=== PATIENT | female | born 1995 | race Hispanic/Latino ===

== ENCOUNTER 2019-07-16 16:45 | Emergency (ER) | payer MEDICAID, OTHER ==
[2019-07-16 17:13] LABS: APPEARANCE,URINE Cloudy (CLEAR); BILIRUBIN,URINE Negative (NEGATIVE); COLOR,URINE Yellow (YELLOW); GLUCOSE, URINE (UA) Negative (NEGATIVE); KETONES,URINE Trace mg/dL (NEGATIVE); LEUKOCYTE ESTERASE ,URINE Trace (NEGATIVE); NITRATE,URINE Negative (NEGATIVE); OCCULT BLOOD,URINE Negative (NEGATIVE); PROTEIN,URINE Negative (NEGATIVE)
[2019-07-16 17:15] LABS: HCG,QUAL RESULT POSITIVE (NEGATIVE)
[2019-07-16 17:30] LABS: SQUAMOUS EPITHELIAL CELL,UR 30-50 /HPF (0-2)
[2019-07-16 17:31] LABS: MUCUS,URINE Moderate LPF (None Seen)
[2019-07-16 17:34] LABS: RBC,URINE 0-1 /HPF (0-1)
[2019-07-16 17:35] LABS: BACTERIA,URINE Few /HPF (None Seen)
== END 2019-07-16 20:00 | disposition home or self-care (01) ==
LOC: EDH 16:45
DX: O21.9 Vomiting of pregnancy, unspecified (principal); J45.909 Unspecified asthma, uncomplicated; Z88.0 Allergy status to penicillin; Z3A.08 8 weeks gestation of pregnancy
CPT/HCPCS: 36415; 76801; 81001; 81025; 84702

== ENCOUNTER 2019-10-03 17:39 | Emergency (ER) | payer MEDICAID ==
[2019-10-03] MEDS ORDERED: SODIUM CHLORIDE 0.9% 1000ML 1,000 ML IV ONE (17:54)
[2019-10-03 18:14] LABS: BASOPHILS % (AUTO) 0.3 % (0.0-5.0); EOSINOPHILS % (AUTO) 2.1 % (0.0-8.0); HEMATOCRIT 34.3 % (36-48); MEAN CORPUSCULAR HEMOGLOBIN 31.3 pg (27.0-33.0); MEAN CORPUSCULAR VOLUME 89.6 fL (79-99); MONOCYTES % (AUTO) 6.4 % (3.0-13.0); NEUTROPHILS % (AUTO) 73.9 % (40.0-77.0); PLATELET COUNT (AUTO) 206 K/uL (130-400); RED BLOOD CELL COUNT(AUTO) 3.83 MIL/uL (4.00-5.50); WHITE BLOOD COUNT (AUTO) 6.7 K/uL (4.8-10.8)
[2019-10-03 18:18] LABS: APPEARANCE,URINE Cloudy (CLEAR); BILIRUBIN,URINE Negative (NEGATIVE); COLOR,URINE Yellow (YELLOW); GLUCOSE, URINE (UA) Negative (NEGATIVE); KETONES,URINE Negative (NEGATIVE); LEUKOCYTE ESTERASE ,URINE Moderate (NEGATIVE); NITRATE,URINE Positive (NEGATIVE); OCCULT BLOOD,URINE Negative (NEGATIVE); PH,URINE 6.5 (5.0-8.0); PROTEIN,URINE Negative (NEGATIVE)
[2019-10-03 18:37] LABS: CREATININE 0.6 mg/dL (0.5-1.5); POTASSIUM 3.3 mmol/L (3.5-5.1)
[2019-10-03 18:42] LABS: ALBUMIN 3.3 g/dL (3.5-5.0); BILIRUBIN,TOTAL 0.3 mg/dL (0.2-1.0); TOTAL PROTEIN, SERUM 6.8 g/dL (6.0-8.3)
[2019-10-03 18:58] LABS: BACTERIA,URINE Many /HPF (None Seen); RBC,URINE None Seen /HPF (0-1); YEAST,URINE BUDDING Few /HPF (None Seen)
== END 2019-10-03 19:15 | disposition home or self-care (01) ==
LOC: EDH 17:39
DX: O23.42 Unspecified infection of urinary tract in pregnancy, second trimester (principal); O99.512 Diseases of the respiratory system complicating pregnancy, second trimester; J45.909 Unspecified asthma, uncomplicated; Z88.0 Allergy status to penicillin; Z3A.16 16 weeks gestation of pregnancy
CPT/HCPCS: 36415; 80053; 81001; 85025; 87077; 87088; 87186; 93005; 96360; 99284; J7030

== ENCOUNTER 2019-11-15 23:59 | Observation (INO) | payer MEDICAID ==
[2019-11-16 00:28] LABS: APPEARANCE,URINE Clear (CLEAR); BILIRUBIN,URINE Negative (NEGATIVE); COLOR,URINE Yellow (YELLOW); GLUCOSE, URINE (UA) Negative (NEGATIVE); KETONES,URINE Negative (NEGATIVE); LEUKOCYTE ESTERASE ,URINE Moderate (NEGATIVE); NITRATE,URINE Negative (NEGATIVE); OCCULT BLOOD,URINE Negative (NEGATIVE); PROTEIN,URINE Negative (NEGATIVE)
[2019-11-16 00:35] LABS: AMPHET/METH SCREEN,URINE NEGATIVE (NEGATIVE); BARBITURATE SCREEN, URINE NEGATIVE (NEGATIVE); BENZODIAZEPINES SCREEN,URINE NEGATIVE (NEGATIVE); CANNABINOID SCREEN,URINE NEGATIVE (NEGATIVE); COCAINE SCREEN,URINE NEGATIVE (NEGATIVE); OPIATE SCREEN,URINE NEGATIVE (NEGATIVE); PHENCYCLIDINE SCREEN,URINE NEGATIVE (NEGATIVE)
[2019-11-16 00:37] LABS: BACTERIA,URINE Rare /HPF (None Seen); RBC,URINE None Seen /HPF (0-1); SQUAMOUS EPITHELIAL CELL,UR Few /HPF (0-2); YEAST,URINE BUDDING Rare /HPF (None Seen)
== END 2019-11-16 01:30 | disposition home or self-care (01) ==
LOC: EDH 23:59 → LDH 11-16
PROVIDERS: ADMIT Internal Medicine; ATTEND Internal Medicine
DX: O26.892 Other specified pregnancy related conditions, second trimester (principal); R10.2 Pelvic and perineal pain; R10.30 Lower abdominal pain, unspecified; Z3A.22 22 weeks gestation of pregnancy
CPT/HCPCS: 80305; 81001; 87088; 99284; G0378

== ENCOUNTER 2021-08-19 22:58 | Emergency (ER) | payer MEDICAID ==
[~2021-08-19] VITALS: Ht 144.8 cm; Wt 61.2 kg
[2021-08-20 00:53] LABS: BASOPHILS % (AUTO) 0.3 % (0.0-5.0); LYMPHOCYTES % (AUTO) 11.9 % (21.0-51.0); MEAN CORPUSCULAR HEMOGLOBIN 28.8 pg (27.0-33.0); MEAN CORPUSCULAR HGB CONC 32.7 g/dL (32.0-36.0); MEAN CORPUSCULAR VOLUME 88.2 fL (79-99); MONOCYTES % (AUTO) 5.9 % (3.0-13.0); NEUTROPHILS % (AUTO) 80.6 % (40.0-77.0); PLATELET COUNT (AUTO) 245 K/uL (130-400); RED BLOOD CELL COUNT(AUTO) 4.65 MIL/uL (4.00-5.50); RED CELL DISTRIBUTION WIDTH 12.2 % (11.0-15.5); WHITE BLOOD COUNT (AUTO) 10.4 K/uL (4.8-10.8)
[2021-08-20 01:04] LABS: CREATININE 0.8 mg/dL (0.5-1.5); POTASSIUM 4.3 mmol/L (3.5-5.1)
[2021-08-20 01:09] LABS: ALBUMIN 4.1 g/dL (3.5-5.0); BILIRUBIN,TOTAL 0.5 mg/dL (0.2-1.0); TOTAL PROTEIN, SERUM 7.8 g/dL (6.0-8.3)
[2021-08-20 01:24] LABS: APPEARANCE,URINE CLEAR (CLEAR); BILIRUBIN,URINE NEGATIVE (NEGATIVE); COLOR,URINE YELLOW (YELLOW); GLUCOSE, URINE (UA) NEGATIVE (NEGATIVE); KETONES,URINE NEGATIVE (NEGATIVE); LEUKOCYTE ESTERASE ,URINE NEGATIVE (NEGATIVE); NITRATE,URINE POSITIVE (NEGATIVE); OCCULT BLOOD,URINE NEGATIVE (NEGATIVE); PROTEIN,URINE NEGATIVE (NEGATIVE); UROBILINOGEN,URINE 0.2 mg/dL (0.2-1.0)
[2021-08-20 01:30] LABS: HCG,QUAL RESULT NEGATIVE (NEGATIVE)
[2021-08-20 01:33] LABS: AMPHET/METH SCREEN,URINE NEGATIVE (NEGATIVE); BACTERIA,URINE Many /HPF (None Seen); BARBITURATE SCREEN, URINE NEGATIVE (NEGATIVE); BENZODIAZEPINES SCREEN,URINE NEGATIVE (NEGATIVE); CANNABINOID SCREEN,URINE NEGATIVE (NEGATIVE); COCAINE SCREEN,URINE NEGATIVE (NEGATIVE); OPIATE SCREEN,URINE NEGATIVE (NEGATIVE); PHENCYCLIDINE SCREEN,URINE NEGATIVE (NEGATIVE); RBC,URINE None Seen /HPF (0-1)
[2021-08-20] MEDS ORDERED: ONDA4TAB10 PO (01:46)
[2021-08-20] MEDS ORDERED: MACR100 PO (01:46)
[2021-08-20] MEDS ORDERED: NITROFURANTOIN MONOHYD/M-CRYST 100 MG CAPSULE PO ONE (02:00)
[2021-08-20 02:15] VITALS: BP 125/75
== END 2021-08-20 02:18 | disposition home or self-care (01) ==
LOC: EDH 22:58
DX: N39.0 Urinary tract infection, site not specified (principal); E86.0 Dehydration; K52.9 Noninfective gastroenteritis and colitis, unspecified; Z20.822 Contact with and (suspected) exposure to COVID-19; Z88.0 Allergy status to penicillin
CPT/HCPCS: 36415; 80053; 80305; 81001; 81025; 85025; 87077; 87186; 87088; 87635; 87804 ×2; 99283; C9803

== ENCOUNTER 2024-03-09 16:51 | Emergency (ER) | payer BC, MEDICAID ==
[~2024-03-09] VITALS: Ht 144.8 cm; Wt 67.1 kg
[~2024-03-09 16:51] MED LIST: MACR100 PO; ONDA-243 PO
--- NOTE | 2024-03-09 17:08 | ERN ---
ED Note History of Present Illness Stated Complaint: VOMITTING,SOB,COUGHING,CHEST PAINS Chief Complaint: Cough Time Seen by MD: 16:53 Dictation: PATIENT IS A 28-YEAR-OLD FEMALE WITH FLU-LIKE SYMPTOMS TO INCLUDE CLEAR RUNNY NOSE, SORE THROAT WITH BODY ACHES, COUGH WITH CLEAR PHLEGM FOR THE LAST 1-2 DAYS. TURNED TEMPERATURE IS 100.7. SHE HAS TAKEN A COMPOUND OF SOMETHING FROM [id number] HOWEVER HAS NOT BEEN TO SEE HER PRIMARY CARE DOCTOR AT THE [facility]. SHE DENIES HISTORY OF ASTHMA CAD. STATES SHE HAS HAD NO NAUSEA NO VOMITING NO DIARRHEA NO LOSS OF TASTE OR SMELL. Allergies: Coded Allergies: Penicillins (Unverified Allergy, Unknown, 07/16/19) Home Meds Active Scripts Ondansetron (Ondansetron Odt) 4 Mg Tab.rapdis, 4 MG PO TID PRN for NAUSEA, #15 TAB 0 Refills Prov:RAMON DIAS MD 08/20/21 Nitrofurantoin/Nitrofuran Mac (Macrobid) 100 Mg Cap, 1 CAP PO BID for 7 Days, #14 CAP 0 Refills Prov:RAMON DIAS MD 08/20/21 Past Medical History Past Medical History: No Pertinent History Surgical History: None PSYCH History: no pertinent psych hx History: Not Applicable RN Note Reviewed/Agreed w/PFSH: Yes Review of System Dictation CONSTITUTIONAL: NEGATIVE EXCEPT FOR HPI FEVER CHILLS HEAD/FACE: NEGATIVE EXCEPT FOR HPI EENT: NEGATIVE EXCEPT FOR HPI CLEAR RUNNY NOSE WITH SORE THROAT RESPIRATORY: NEGATIVE EXCEPT FOR HPI PRODUCTIVE COUGH WITH CLEAR PHLEGM GASTROINTESTINAL/ABDOMINAL: NEGATIVE EXCEPT FOR HPI GENITOURINARY: NEGATIVE EXCEPT FOR HPI MUSCULOSKELETAL: NEGATIVE EXCEPT FOR HPI INTEGUMENTARY: NEGATIVE EXCEPT FOR HPI NEUROLOGICAL/PSYCH: NEGATIVE EXCEPT FOR HPI HEMATOLOGIC/LYMPHATIC: NEGATIVE EXCEPT FOR HPI ALL SYSTEMS NEGATIVE, EXCEPT NOTED ABOVE. 13 POINT REVIEW OF SYSTEMS ASSESSED AND ALL NEGATIVE EXCEPT FOR ABOVE. Initial Vital Sign VS Vital Signs Date Time Temp Pulse Resp B/P (MAP) Pulse Ox O2 Delivery O2 Flow Rate FiO2 03/09/24 16:53 100.8 131 18 157/75 98 Physical Exam Dictation VITAL SIGNS REVIEWED GENERAL APPEARANCE: ALERT, ORIENTED X 3, MILD ACUTE DISTRESS, WELL DEVELOPED, NOURISHED. HEAD AND FACE: NON-TRAUMATIC. EYES: PERRL, PINK CONJUNCTIVAS, EYELID NO TRAUMA, ANTERIOR CHAMBER WITH ARCUS SENILIS. EARS: PINNAS INTACT AND NO SIGNS OF TRAUMA OR ERYTHEMA EAR CANALS CLEAR AND NO DISCHARGE TM NO ERYTHEMA NOSE: CLEAR DISCHARGE, NO BLEEDING. OROPHARYNX: MOUTH NORMAL, TONGUE PINK, PHARYNX CLEAR, MODERATE PHARYNGEAL ERYTHEMA, TONSILS NO EXUDATES, NO ABSCESSES NOTED, MUCOUS MEMBRANE MOIST UVULA MIDLINE, VOICE IS CLEAR NECK: SUPPLE, NON-TENDER, NO THYROMEGALY, NO MASSES, NO JVD, NO BRUITS BREAST:DEFERRED CHEST:NO TENDERNESS, NO CREPITUS, NO PARADOXICAL MOVEMENT, NO RETRACTIONS LUNGS:CLEAR, WELL-VENTILATED, SYMMETRIC, NO RALES, NO WHEEZING, NO RHONCHI, NO STRIDOR, GOOD BREATH SOUNDS BILATERALLY HEART: REGULAR RATE, REGULAR RHYTHM, NO MURMUR, NO GALLOPS VASCULAR: NO PERIPHERAL EDEMA, ABDOMEN: SOFT, POSITIVE BOWEL SOUNDS, NONDISTENDED, NO GUARDING, NONTENDER, NO REBOUND, NO MASSES NO HEPATOMEGALY, NO SPLENOMEGALY, NO MARIEE'S SIGN, NO HERNIAS. RECTAL: DEFERRED GENITAL: DEFERRED NEUROLOGICAL: NORMAL SPEECH, MOTOR FUNCTION INTACT, SENSORY FUNCTION INTACT MUSCULOSKELETAL: NECK NONTENDER, FULL RANGE OF MOTION, BACK NONTENDER, FULL RANGE OF MOTION, EXTREMITIES: NONTENDER, FULL RANGE OF MOTION SKIN: COLOR PINK, DRY, NO TURGOR, NO RASH, NO LACERATIONS, NO ABRASIONS, NO CONTUSIONS. LYMPHATIC: DEFERRED Results (Laboratory/Radiology) Laboratory/Radiology Laboratory Tests Test 03/09/24 17:00 Influenza Type A Antigen Positive For Type A Influenza Type B Antigen Negative For Type B SARS-CoV-2 Antigen (Rapid) PRESUMPTIVE NEGATIVE Group A Streptococcus Rapid negative (NEGATIVE) Labs Reviewed?: Yes ED Course ED Course Orders Procedure Category Date Status Time Acetaminophen 500mg PHA 03/09/24 Complete Tab (Tylenol 500mg T 17:00 Rapid (Group A Strep) LAB 03/09/24 Complete 16:59 Covid19 (Sars Antigen LAB 03/09/24 Complete Rapid) 16:59 Influenza Type A & B, LAB 03/09/24 Complete Rapid 16:59 Current Medications Medications (Trade) Dose Ordered Sig/Nanette Route PRN Reason Start Time Stop Time Status Last Admin Dose Admin Acetaminophen (TYLenol 500MG TAB) 1,000 mg ONCE ONCE PO 03/09/24 17:00 03/09/24 17:01 DC 03/09/24 17:16 Vital Signs Date Time Temp Pulse Resp B/P (MAP) Pulse Ox O2 Delivery O2 Flow Rate FiO2 03/09/24 16:53 100.8 131 18 157/75 98 18:00 HOURS PATIENT WILL BE DISCHARGED HOME WITH DIAGNOSIS OF INFLUENZA A. ALSO ACUTE PHARYNGITIS UNSPECIFIED AND FEET Medical Decision Making MDM MEDICAL DECISION-MAKING BASED ON SWABS FOR FLU COVID AND STREP. PATIENT WILL BE TREATED EMPIRICALLY FOR ACUTE PHARYNGITIS UNSPECIFIED SWABS POSITIVE FOR INFLUENZA A PATIENT DISCHARGED HOME WITH ALBUTEROL, TAMIFLU, ZITHROMAX 500 DAILY FOR SEVEN DAYS DX & DISP Disposition: Discharge Departure Impression: Primary Impression: Influenza A Additional Impressions: Acute pharyngitis, unspecified, Fever, Cough Condition: Stable Scripts Albuterol Sulfate (Ventolin Hfa/Proventil Hfa/Proair Hfa) 90 Mcg Puff 2 PUFF IH Q4H for WHEEZING, #1 INHALER 0 Refills Prov: CHUY HILL MULTI TOWNSHIP ASSESSOR 03/09/24 Azithromycin (Zithromax Tri-Stanley) 500 Mg Tablet 500 MG PO DAILY for 7 Days, #7 TAB Prov: CHUY HILL M[employer]OWNSH[employer] ASSESSOR 03/09/24 Oseltamivir Phosphate (Tamiflu) 75 Mg Cap 75 MG PO BID for 5 Days, #10 CAP Prov: CHUY HILL M[employer] TOWNSHIP ASSESSOR 03/09/24 Additional Instructions: FOLLOW-UP WITH PRIMARY CARE PROVIDER IN 1 TO 2 DAYS. TAKE MEDICATIONS DIRECTED HERE IN THE EMERGENCY ROOM. OKAY TO CONTINUE HOME MEDICATIONS UNLESS OTHERWISE DISCUSSED DURING YOUR VISIT IN THE EMERGENCY ROOM TODAY. RETURN TO YOUR NEAREST EMERGENCY ROOM IF SYMPTOMS WORSEN OR IF THERE IS NO IMPROVEMENT. CALL 911 IF YOU NEED IMMEDIATE ASSISTANCE. TAKE TYLENOL OR MOTRIN O [id number] NEEDED AND IF NO CONTRAINDICATIONS ARE PRESENT. INCREASE ORAL HYDRATION. A WOUND CULTURE OR URINE CULTURE WAS ORDERED HERE IN THE EMERGENCY ROOM DEPARTMENT PLEASE FOLLOW-UP WITH PRIMARY CARE PROVIDER AND ADVISE THEM TO GET REPEAT PORTS FROM OUR FACILITY. IF YOU HAD ANY ROSA WRAP/SPLINTS THAT WERE APPLIED HERE, PLEASE DO NOT REMOVE THEM UNTIL YOU SEE YOUR PRIMARY CARE OR SPECIALTY. TAKE ANTIBIOTICS AND TAMIFLU DIRECTED UNTIL GONE. INCREASE YOUR WATER INTAKE. USE ALBUTEROL INHALER EVERY4 HOURS WHILE AWAKE FOR THE NEXT THREE DAYS. FOLLOW UP WITH YOUR DOCTOR AT THE [facility] FOR MANAGEMENT. NO WORK UNTIL CLEARED BY YOUR DOCTOR AT [facility] Referrals: LUIS BRANDT MD (PCP) Time of Disposition: 18:00 I have reviewed the case, and I agree with, Diagnosis and Plan CHUY HILL NP Mar 09, 2024 17:08
[2024-03-09] MEDS: acetaMINOPHEN 500 MG TABLET PO ONE (17:16)
[2024-03-09 17:20] LABS: RAPID GROUP A STREP negative (NEGATIVE)
[2024-03-09 17:30] LABS: COVID19 (SARS ANTIGEN RAPID) PRESUMPTIVE NEGATIVE (NEGATIVE)
[2024-03-09 17:31] LABS: INFLUENZA TYPE B Negative For Type B (NEGATIVE)
[2024-03-09 17:37] LABS: INFLUENZA TYPE A Positive For Type A (NEGATIVE)
[2024-03-09] MEDS ORDERED: AZIT500T2 PO (18:01)
[2024-03-09] MEDS ORDERED: ALBUHFA IH (18:01)
[2024-03-09] MEDS ORDERED: OSEL75 PO (18:01)
[2024-03-09 18:11] VITALS: BP 118/78; PULSE 81; RESP 18; TEMP 99; O2SAT 98
== END 2024-03-09 18:12 | disposition home or self-care (01) ==
LOC: EDH 16:51
DX: J10.1 Influenza due to other identified influenza virus with other respiratory manifestations (principal); R50.9 Fever, unspecified; R05.9 Cough, unspecified; Z88.0 Allergy status to penicillin; Z20.822 Contact with and (suspected) exposure to COVID-19
CPT/HCPCS: 87426; 87804; 87880; 99283

== ENCOUNTER 2024-07-25 18:31 | Emergency (ER) | payer BC ==
[~2024-07-25] VITALS: Ht 144.8 cm; Wt 67.1 kg
[~2024-07-25 18:31] MED LIST changes: +ALBUHFA IH; +AZIT500T2 PO; +OSEL75 PO
[2024-07-25 18:55] LABS: APPEARANCE,URINE CLOUDY (CLEAR); BILIRUBIN,URINE NEGATIVE (NEGATIVE); COLOR,URINE LIGHT-YELLOW (YELLOW); GLUCOSE, URINE (UA) NEGATIVE (NEGATIVE); KETONES,URINE NEGATIVE (NEGATIVE); LEUKOCYTE ESTERASE ,URINE 75 Leu/uL (NEGATIVE); NITRATE,URINE 1+ (NEGATIVE); OCCULT BLOOD,URINE SMALL (NEGATIVE); PROTEIN,URINE NEGATIVE (NEGATIVE); UROBILINOGEN,URINE 0.2 mg/dL (0.2-1.0)
[2024-07-25 18:56] LABS: ADD UA MICROSCOPIC YES
[2024-07-25 18:57] LABS: BACTERIA,URINE FEW /HPF (None Seen); MUCUS,URINE RARE LPF (None Seen); SQUAMOUS EPITHELIAL CELL,UR FEW /HPF (0-2)
[2024-07-25 19:01] LABS: HCG,QUALITATIVE URINE NEGATIVE (NEGATIVE)
[2024-07-25 19:15] LABS: BASOPHILS # (AUTO) 0.04 K/uL (0.00-0.20); BASOPHILS % (AUTO) 0.4 % (0.0-5.0); EOSINOPHILS # (AUTO) 0.07 K/uL (0.00-0.70); EOSINOPHILS % (AUTO) 0.7 % (0.0-8.0); HEMATOCRIT 39.5 % (36-48); IMMATURE GRANULOCYTE ABSOLUTE 0.04 K/uL (0-1); LYMPHOCYTES # (AUTO) 1.4 K/uL (1.0-4.8); LYMPHOCYTES % (AUTO) 13.9 % (21.0-51.0); MEAN CORPUSCULAR HEMOGLOBIN 30.4 pg (27.0-33.0); MEAN CORPUSCULAR HGB CONC 33.4 g/dL (32.0-36.0); MONOCYTES # (AUTO) 0.6 K/uL (0.1-1.0); MONOCYTES % (AUTO) 5.9 % (3.0-13.0); NEUTROPHILS # (AUTO) 7.8 K/uL (1.8-7.7); NEUTROPHILS % (AUTO) 78.7 % (40.0-77.0); PLATELET COUNT (AUTO) 245 K/uL (130-400); RED BLOOD CELL COUNT(AUTO) 4.34 MIL/uL (4.00-5.50)
[2024-07-25 19:24] LABS: CREATININE 0.7 mg/dL (0.5-1.0); POTASSIUM 3.9 mmol/L (3.5-5.1)
[2024-07-25] MEDS: acetaMINOPHEN 500 MG TABLET PO STA (19:33)
[2024-07-25 19:40] VITALS: BP 115/51; PULSE 95; RESP 18; TEMP 99.1; O2SAT 99
[2024-07-25] MEDS ORDERED: NITR100C PO (19:49)
--- NOTE | 2024-07-25 19:50 | ERN ---
ED Note History of Present Illness Stated Complaint: LOWER BACK AND PELVIC PAIN Chief Complaint: Pelvic Pain Time Seen by MD: 18:32 Time Seen by Midlevel: 18:36 Dictation: 28Year old female coming in with complaints of lower back pain and pain to her uterus started a couple of days ago. Patient states she does not know when her last menstruation was a she is irregular and takes control pills. Denies any vaginal bleeding vaginal discharge. Denies any fever, nausea vomiting or diarrhea. Patient mentioned in her last her urine hCG was negative. Allergies: Coded Allergies: Penicillins (Unverified Allergy, Unknown, 07/16/19) Home Meds Active Scripts Albuterol Sulfate (Ventolin Hfa/Proventil Hfa/Proair Hfa) 90 Mcg Puff, 2 PUFF IH Q4H for WHEEZING, #1 INHALER 0 Refills Prov:CHUY HILL NP 03/09/24 Azithromycin (Zithromax Tri-Stanley) 500 Mg Tablet, 500 MG PO DAILY for 7 Days, #7 TAB Prov:CHUY HILL NP 03/09/24 Oseltamivir Phosphate (Tamiflu) 75 Mg Cap, 75 MG PO BID for 5 Days, #10 CAP Prov:CHUY HILL NP 03/09/24 Ondansetron (Ondansetron Odt) 4 Mg Tab.rapdis, 4 MG PO TID PRN for NAUSEA, #15 TAB 0 Refills Prov:RAMON DIAS MD 08/20/21 Nitrofurantoin/Nitrofuran Mac (Macrobid) 100 Mg Cap, 1 CAP PO BID for 7 Days, #14 CAP 0 Refills Prov:RAMON DIAS MD 08/20/21 Past Medical History Past Medical History: No Pertinent History Surgical History: Other History: Not Applicable : 1 Para: 2 Aborts: 0 Review of System Dictation Constitutional: Negative for fever,chills, and weight loss Eyes: Negative for injury, pain,redness, and discharge ENT: Negative for injury,pain or swelling Cardiovascular: Negative for chest pain, palpitations, and edema Respiratory: Negative for shortness of breath, cough, and wheezing, Abdomen/GI: Negative for abdominal pain, nausea, vomiting, diarrhea, and constipation Back: Complaining of lower back pain : Negative for injury, bleeding and discharge, complaining of uterus" pain MS/Extremity: Negative for injury and deformity Skin: Negative for rash, and discoloration Neuro: Negative for headache, weakness, numbness, tingling, and seizure Psych: Negative for suicide ideation, homicidal ideation, and hallucinations Review of Systems: was completed Initial Vital Sign VS Vital Signs Date Time Temp Pulse Resp B/P (MAP) Pulse Ox O2 Delivery O2 Flow Rate FiO2 07/25/24 18:32 99.1 100 18 150/64 100 Room Air 0 07/25/24 19:40 21 Physical Exam Dictation General: awake, alert, NAD Head/Face: Normocephalic, atraumatic Eyes: PERRL, EOMI, vision at baseline ENT: oral cavity clear, TMs clear, no signs of infection Neck: Trachea midline, supple, no nuchal rigidity Cardiovascular: RRR, normal S1/S2, No MRGs, no JVD Respiratory: CTAB, no respiratory distress, No rales or wheezes Abdomen: Soft, non-tender, non-distended, normal bowel sounds, no guarding or rebound. Skin: Warm, dry, normal turgor, no rash MS/Extremity: Pulses equal, no cyanosis, neurovascular intact, FROM Neuro: COAx4, GCS 15, strength 5/5, CN 2-12 intact, normal cerebellar exam, normal gait, Psych: Normal behavior, mood, and affect normal Results (Laboratory/Radiology) Laboratory/Radiology Laboratory Tests Test 07/25/24 18:41 07/25/24 19:08 Urine Color LIGHT-YELLOW (YELLOW) Urine Appearance CLOUDY (CLEAR) H Urine pH 6.0 (5.0-8.0) Urine Specific [place] 1.027 (1.001-1.031) Urine Protein NEGATIVE mg/dL (NEGATIVE) Urine Glucose (UA) NEGATIVE mg/dL (NEGATIVE) Urine Ketones NEGATIVE mg/dL (NEGATIVE) Urine Occult Blood SMALL (NEGATIVE) H Urine Nitrate 1+ (NEGATIVE) H Urine Bilirubin NEGATIVE mg/dL (NEGATIVE) Urine Urobilinogen 0.2 mg/dL (0.2-1.0) Urine Leukocyte Esterase 75 Merry/uL (NEGATIVE) H Urine RBC 6-10 /HPF (0-1) H Urine WBC 11-25 /HPF (0-1) H Urine Squamous Epithelial Cells FEW /HPF (0-2) Urine Bacteria FEW /HPF (None Seen) Urine HCG, Qualitative NEGATIVE (NEGATIVE) White Blood Count 10.0 K/uL (4.8-10.8) Red Blood Count 4.34 MIL/uL (4.00-5.50) Hemoglobin 13.2 g/dL (12.0-16.0) Hematocrit 39.5 % (36-48) Mean Corpuscular Volume 91.0 fL (79-99) Mean Corpuscular Hemoglobin 30.4 pg (27.0-33.0) Mean Corpuscular Hemoglobin Concent 33.4 g/dL (32.0-36.0) Red Cell Distribution Width 12.0 % (11.0-15.5) Platelet Count 245 K/uL (130-400) Mean Platelet Volume 9.9 fL (7.5-10.5) Immature Granulocyte % (Auto) 0.4 % (0-1) Neutrophils (%) (Auto) 78.7 % (40.0-77.0) H Lymphocytes (%) (Auto) 13.9 % (21.0-51.0) L Monocytes (%) (Auto) 5.9 % (3.0-13.0) Eosinophils (%) (Auto) 0.7 % (0.0-8.0) Basophils (%) (Auto) 0.4 % (0.0-5.0) Neutrophils # (Auto) 7.8 K/uL (1.8-7.7) H Lymphocytes # (Auto) 1.4 K/uL (1.0-4.8) Monocytes # (Auto) 0.6 K/uL (0.1-1.0) Eosinophils # (Auto) 0.07 K/uL (0.00-0.70) Basophils # (Auto) 0.04 K/uL (0.00-0.20) Absolute Immature Granulocyte (auto 0.04 K/uL (0-1) Nucleated Red Blood Cells 0.0 % (0.0-0.19) Sodium Level 140 mmol/L (136-145) Potassium Level 3.9 mmol/L (3.5-5.1) Chloride Level 103 mmol/L (101-111) Carbon Dioxide Level 31 mmol/L (21-32) Blood Urea Nitrogen 17 mg/dL (7-18) Creatinine 0.7 mg/dL (0.5-1.0) Glomerular Filtration Rate Calc 121 mL/min (>90) Random Glucose 106 mg/dL (70-105) H Total Calcium 8.9 mg/dL (8.5-10.1) Human Chorionic Gonadotropin, Quant 1 mIU/mL (0-5) Labs Reviewed?: Yes ED Course ED Course Orders Procedure Category Date Status Time Cbc With Differential LAB 07/25/24 Complete 18:36 Basic Metabolic Panel LAB 07/25/24 Complete 18:36 Hcg,Quantitative LAB 07/25/24 Complete 18:36 Urinalysis Profile LAB 07/25/24 Complete 18:36 ,Urine Test LAB 07/25/24 Complete 18:36 Acetaminophen 500mg PHA 07/25/24 Complete Tab (Tylenol 500mg T 18:36 Culture Urine EVELYN 07/25/24 Logged 18:56 Current Medications Medications (Trade) Dose Ordered Sig/Nanette Route PRN Reason Start Time Stop Time Status Last Admin Dose Admin Acetaminophen (TYLenol 500MG TAB) 1,000 mg ONCE STAT PO 07/25/24 18:36 07/25/24 18:37 DC 07/25/24 19:33 Vital Signs Date Time Temp Pulse Resp B/P (MAP) Pulse Ox O2 Delivery O2 Flow Rate FiO2 07/25/24 19:40 99.1 95 18 115/51 99 Room Air* 0 21 07/25/24 18:32 99.1 100 18 150/64 100 Room Air 0 Medical Decision Making MDM MDM: 28Year old female coming in with complaints of lower back pain and pain to her uterus started a couple of days ago. Patient states she does not know when her last menstruation was a she is irregular and takes control pills. Denies any vaginal bleeding vaginal discharge. Denies any fever, nausea vomiting or diarrhea. Patient mentioned in her last her urine hCG was negative. Blood work unremarkable. Serum HCG is negative and urinary test is negative as well. UA shows evidence of urinary tract infection. We will prescribe patient antibiotics to take home. Discussed with the patient red flag symptoms to return to the hospital, also educated patient she needs to follow up with the OBGYN. Patient verbalized understanding, answered all questions. Differential diagnosis: Early , UTI, muscle spasm Rationale: Tests considered and ordered secondary to shared decision making include: Previous outside records reviewed: Old ER visits. Risk of complication and/or morbidity or mortality of patient management: None Medications-Per medication reconciliation Need for hospitalization: Patient does not meet criteria for hospitalization. Need for emergency major/minor surgery: No There are no social concerns with this patient. Prescription drug management Prescriptions will include symptomatic care Patient's prior external medical records from other ER visits were reviewed by me as indicated. Prior testing and results from previous visits were reviewed. Prior tests were taken into account with medical decision making and resource utilization, independent historian/historians were used to obtain complete medical history. I independently interpreted the test that were performed, results were reviewed by me and considered findings on radiology if ordered. Medical management and examination interpretation discussions were had by me with other qualified healthcare professionals as indicated for the patient's care. DX & DISP Disposition: Discharge Departure Impression: Primary Impression: UTI (urinary tract infection) Condition: Stable Scripts Nitrofurantoin Macrocrystal (Nitrofurantoin) 100 Mg Capsule 1 CAP PO BID for 5 Days, #14 CAP 0 Refills Prov: COBY NEGRETE NP 07/25/24 Additional Instructions: Complete the course of antibiotics. Take Tylenol or Motrin [id number] for pain control. Follow up with the OBGYN. Referrals: CHUY MARIA MD (PCP) Time of Disposition: 19:47 I have reviewed the case, and I agree with, Diagnosis and Plan COBY NEGRETE NP Jul 25, 2024 19:50
== END 2024-07-25 19:57 | disposition home or self-care (01) ==
LOC: EDH 18:31
DX: N39.0 Urinary tract infection, site not specified (principal); Z88.0 Allergy status to penicillin; R10.2 Pelvic and perineal pain; Z79.899 Other long term (current) drug therapy
CPT/HCPCS: 36415; 80048; 81001; 81025; 84702; 85025; 87086; 87186; 99283

== ENCOUNTER 2025-02-09 03:12 | Emergency (ER) | payer BC ==
[~2025-02-09] VITALS: Ht 144.8 cm; Wt 68.0 kg
[~2025-02-09 03:12] MED LIST changes: +NITR100C PO
--- NOTE | 2025-02-09 03:20 | ERN ---
General Chief Complaint: Finger Injury Stated Complaint: SWOLLEN R MIDDLE FINGER Time Seen by MD: 03:15 Source: patient History of Present Illness Initial Comments PATIENT IS A 29-YEAR-OLD FEMALE COMING IN COMPLAINING OF RIGHT HAND MIDDLE FINGER DISTAL SWELLING. PER PATIENT SHE SMASHED HER FINGER COUPLE OF DAYS AGO YESTERDAY SHE NOTICED A DISTAL PORTION OF HER MIDDLE FINGER RED WITH THE CUTICLE CHANGE IN COLOR TO WHITE. Allergies: Coded Allergies: Penicillins (Unverified Allergy, Unknown, 07/16/19) Home Meds Active Scripts Nitrofurantoin Macrocrystal (Nitrofurantoin) 100 Mg Capsule, 1 CAP PO BID for 5 Days, #14 CAP 0 Refills Prov:COBY NEGRETE GENERAL INTERNIST 07/25/24 Albuterol Sulfate (Ventolin Hfa/Proventil Hfa/Proair Hfa) 90 Mcg Puff, 2 PUFF IH Q4H for WHEEZING, #1 INHALER 0 Refills Prov:CHUY HILL AIRPLANE CAPTAIN 03/09/24 Azithromycin (Zithromax Tri-Stanley) 500 Mg Tablet, 500 MG PO DAILY for 7 Days, #7 TAB Prov:CHUY HILL AIRPLANE CAPTAIN 03/09/24 Oseltamivir Phosphate (Tamiflu) 75 Mg Cap, 75 MG PO BID for 5 Days, #10 CAP Prov:CHUY HILLP 03/09/24 Ondansetron (Ondansetron Odt) 4 Mg Tab.rapdis, 4 MG PO TID PRN for NAUSEA, #15 TAB 0 Refills Prov:RAMON DIAS MD 08/20/21 Nitrofurantoin/Nitrofuran Mac (Macrobid) 100 Mg Cap, 1 CAP PO BID for 7 Days, #14 CAP 0 Refills Prov:RAMON DIAS MD 08/20/21 Past Medical History Past Medical History: No Pertinent History Past Surgical History: Other Female( History) History: Not Applicable : 1 Para: 2 Aborts: 0 ROS Dictation CONSTITUTIONAL: NO CHILLS, NO FEVER, NO WEAKNESS, NO DIAPHORESIS, NO MALAISE. HEAD/FACE: NO SIGNS OF TRAUMA. EENT: NO EYE PAIN, NO BLURRED VISION, NO TEARING, NO DOUBLE VISION, NO EAR PAIN, NO EAR DISCHARGE, NO NOSE PAIN, NO NASAL CONGESTION, NO THROAT PAIN, NO THROAT SWELLING, NO MOUTH PAIN. RESPIRATORY: NO COUGH, NO ORTHOPNEA, NO SOB, NO STRIDOR, NO WHEEZING. CARDIOVASCULAR: NO CHEST PAIN, NO EDEMA, NO PALPITATIONS, NO SYNCOPE. GASTROINTESTINAL/ABDOMINAL: NO ABDOMINAL PAIN, NO CONSTIPATION, NO DIARRHEA, NO NAUSEA, NO VOMITING. GENITOURINARY: NO ABNORMAL DISCHARGE, NO DYSURIA, NO FREQUENT URINATION, NO HEMATURIA. NO COMPLAINTS OF PAIN IN THE GENITALS. MUSCULOSKELETAL: NO BACK PAIN, NO GOUT, NO JOINT PAIN, NO JOINT SWELLING, NO MUSCLE PAIN, NO MUSCLE STIFFNESS, NO NECK PAIN. INTEGUMENTARY: NO CHANGE IN COLOR, NO CHANGE IN HAIR/NAILS, NO DRYNESS, LESION, NO LUMPS, NO RASH. NEUROLOGICAL/PSYCH: NO ANXIETY, NOT DEPRESSED, NO EMOTIONAL PROBLEM, NO HEADACHE, NO NUMBNESS, NO PRE-EXISTING DEFICIT, NO HISTORY OF SEIZURES, NO TREMORS, NO WEAKNESS. HEMATOLOGIC/LYMPHATIC: NOT ANEMIC, NO HISTORY OF BLOOD CLOTS, NO APPARENT BLEEDING, NO BRUISING, GLANDS NOT SWOLLEN. ALL SYSTEMS NEGATIVE, EXCEPT NOTED. Physical Exam Physical Exam Dictation VITAL SIGNS: REVIEWED. GENERAL APPEARANCE: ALERT, ORIENTED X3, NO ACUTE DISTRESS, OBESE. HEAD AND FACE: NON-TRAUMATIC. EYES: PERRL, PINK CONJUNCTIVAS, EYELID NO TRAUMA, ANTERIOR CHAMBER CLEAR. EARS: PINNAS INTACT AND NO SIGNS OF TRAUMA OR ERYTHEMA. EAR CANALS CLEAR AND NO DISCHARGE. TMS NO ERYTHEMA. NOSE: NO DISCHARGE, NO BLEEDING. OROPHARYNX: MOUTH NORMAL, TEETH NO CARIES, TONGUE PINK. PHARYNX CLEAR, NO ERYTHEMA. TONSILS NO EXUDATES, NO ABSCESSES NOTED. MUCOUS MEMBRANE MOIST. NECK: SUPPLE, NON-TENDER, NO THYROMEGALY, NO MASSES, NO JVD, NO BRUITS. BREAST: DEFERRED. CHEST: NO TENDERNESS, NO CREPITUS, NO PARADOXICAL MOVEMENT, NO RETRACTIONS. LUNGS: CLEAR, WELL-VENTILATED, SYMMETRIC, NO RALES, NO WHEEZING, NO RHONCHI, NO STRIDOR, GOOD BREATH SOUNDS BILATERALLY. HEART: REGULAR RATE, REGULAR RHYTHM, NO MURMUR, NO GALLOPS. VASCULAR: NO PERIPHERAL EDEMA. ABDOMEN: SOFT, POSITIVE BOWEL SOUNDS, NONDISTENDED, NO GUARDING, NONTENDER, NO REBOUND, NO MASSES NO HEPATOMEGALY, NO SPLENOMEGALY, NO MARIEE'S SIGN, NO HERNIAS. RECTAL: DEFERRED. GENITAL: DEFERRED. NEUROLOGICAL: NORMAL SPEECH, GROSS MOTOR FUNCTION INTACT, GROSS SENSORY FUNCTION INTACT. MUSCULOSKELETAL: NECK NONTENDER, FULL RANGE OF MOTION, BACK NONTENDER, FULL RANGE OF MOTION. EXTREMITIES: NONTENDER, FULL RANGE OF MOTION. SKIN: COLOR PINK, DRY, NO TURGOR, NO RASH, NO LACERATIONS, RIGHT HAND 3RD DIGIT PARONYCHIA LYMPHATICS: DEFERRED. Results Laboratory and Microbiology Labs Reviewed?: Yes MDM MDM: DIFFERENTIAL DIAGNOSIS: PARONYCHIA, RATIONALE: TESTS CONSIDERED AND ORDERED SECONDARY TO SHARED DECISION MAKING INCLUDE: PREVIOUS OUTSIDE RECORDS REVIEWED: OLD ER VISITS. RISK OF COMPLICATION AND/OR MORBIDITY OR MORTALITY OF PATIENT MANAGEMENT: NONE MEDICATIONS-PER MEDICATION RECONCILIATION NEED FOR HOSPITALIZATION: PATIENT DOES NOT MEET CRITERIA FOR HOSPITALIZATION. NEED FOR EMERGENCY MAJOR/MINOR SURGERY: NO PATIENT IS A 29-YEAR-OLD FEMALE COMING IN COMPLAINING OF RIGHT HAND MIDDLE DIGIT DISCOMFORT AND COLOR CHANGE. ON PHYSICAL EXAM THE BASE OF THE NAIL BED HAS A PARONYCHIA IN PLACE. PARONYCHIA WAS LANCED AND DRAINED PATIENT WILL BE GOING HOME WITH ORAL ANTIBIOTICS. PATIENT TOLERATED PROCEDURE WELL WE WILL BE DISCHARGED IN STABLE CONDITION. ED Course Orders Procedure Category Date Status Time Neomy PHA 02/09/25 Complete Sulf/Bacitra/Polymyxin 03:26 Current Medications Medications (Trade) Dose Ordered Sig/Nanette Route PRN Reason Start Time Stop Time Status Last Admin Dose Admin Neomycin/ Polymyxin/ Bacitracin (Triple Antibiotic Ointment) 1 appl STK-MED ONCE TP 02/09/25 03:26 02/09/25 03:26 DC Vital Signs Date Time Temp Pulse Resp B/P (MAP) Pulse Ox O2 Delivery O2 Flow Rate FiO2 02/09/25 03:14 96.8 85 18 124/76 99 Room Air 0 Incision and Drainage Incision and Drainage : Blade Size: 11 I & D Procedure: no betadine prepno sterile drapes applied Progress IN HIS HAS BEEN PARONYCHIA FOUND OUT THE BASE OF THE NAIL BED OF THE 3RD DIGIT OF THE RIGHT HAND WAS LANCED USING A SCALPEL BLADE SIZE 11, PURULENT DISCHARGE PRESSURE WAS RELIEVED. PATIENT TOLERATED PROCEDURE WELL DX & DISP Disposition: Discharge Departure Impression: Primary Impression: Paronychia Condition: Stable Scripts Bacitracin (Bacitracin) 500 Unit/Gram Oint...g. 1 APPL TP BID for 7 Days, #15 GM 0 Refills apply to affected area(s) Prov: ROBBI COLÓN MD 02/09/25 Additional Instructions: FOLLOW-UP WITH PRIMARY CARE PROVIDER IN 1 TO 2 DAYS. TAKE MEDICATIONS DIRECTED HERE IN THE EMERGENCY ROOM. OKAY TO CONTINUE HOME MEDICATIONS UNLESS OTHERWISE DISCUSSED DURING YOUR VISIT IN THE EMERGENCY ROOM TODAY. RETURN TO [facility] EM[facility]GENC[facility] IF SYMPTOMS WORSEN OR IF THERE IS NO IMPROVEMENT. CALL 911 IF YOU NEED IMMEDIATE ASSISTANCE. TAKE TYLENOL [id number] NEEDED AND IF NO CONTRAINDICATIONS ARE PRESENT. INCREASE ORAL HYDRATION. A WOUND CULTURE OR URINE CULTURE WAS ORDERED HERE IN THE EMERGENCY ROOM DEPARTMENT PLEASE FOLLOW-UP WITH PRIMARY CARE PROVIDER AND ADVISE THEM TO GET REPORTS FROM OUR FACILITY. IF YOU HAD ANY ORSA WRAP/SPLINTS THAT WERE APPLIED HERE, PLEASE DO NOT REMOVE THEM UNTIL YOU SEE YOUR PRIMARY CARE OR SPECIALTY. REFERRALS: Referrals: CHUY MARIA MD (PCP) Time of Disposition: 03:19 ROBBI COLÓN MD Feb 09, 2025 03:20
[2025-02-09] MEDS ORDERED: BACI30OI6 TP (03:28)
[2025-02-09 03:30] VITALS: BP 121/73; PULSE 85; RESP 18; TEMP 96.4; O2SAT 100
[2025-02-09] MEDS: NEOMY SULF/BACITRA/POLYMYXIN B 1 EACH PACKET TP ONE (03:37)
== END 2025-02-09 03:51 | disposition home or self-care (01) ==
LOC: EDH 03:12
DX: L03.011 Cellulitis of right finger (principal); Z88.0 Allergy status to penicillin
CPT/HCPCS: 10060; 99282

== ENCOUNTER 2025-02-13 20:22 | Emergency (ER) | payer BC ==
[~2025-02-13] VITALS: Ht 144.8 cm; Wt 66.2 kg
[~2025-02-13 20:22] MED LIST changes: +BACI30OI6 TP
[2025-02-13 20:36] LABS: APPEARANCE,URINE CLEAR (CLEAR); GLUCOSE, URINE (UA) NEGATIVE (NEGATIVE); LEUKOCYTE ESTERASE ,URINE 500 Leu/uL (NEGATIVE); NITRATE,URINE NEGATIVE (NEGATIVE); OCCULT BLOOD,URINE +- (TRACE) (NEGATIVE)
[2025-02-13 20:45] LABS: ADD UA MICROSCOPIC YES
[2025-02-13 20:47] LABS: SQUAMOUS EPITHELIAL CELL,UR MOD /HPF (0-2)
--- NOTE | 2025-02-13 20:53 | ERN ---
ED Note History of Present Illness Stated Complaint: C/O LOWER ABD PAIN W/LOWER BACK PAIN Chief Complaint: Abdominal Pain Time Seen by MD: 20:26 Time Seen by Midlevel: 20:26 Dictation: The patient is a 29-year-old female with a history of irregular periods, asthma who presents to the emergency department with complaints of suprapubic abdominal pain onset two days ago. Patient reports occasional nonbloody diarrhea. Denies any vaginal bleeding or discharge, denies any nausea or vomiting, denies any fevers. Reports pain traumas to her lower back. And it is associated with the occasional dizziness. Allergies: Coded Allergies: Penicillins (Unverified Allergy, Unknown, 07/16/19) Home Meds Active Scripts Nitrofurantoin Monohyd/M-Cryst (Macrobid 100 mg Capsule) 100 Mg Capsule, 1 CAP PO BID for 5 Days, #10 CAP 0 Refills Prov:SANTY KENDALL LABEL REMOVER 02/13/25 Bacitracin (Bacitracin) 500 Unit/Gram Oint...g., 1 APPL TP BID for 7 Days, #15 GM 0 Refills apply to affected area(s) Prov:ROBBI COLÓN MD 02/09/25 Nitrofurantoin Macrocrystal (Nitrofurantoin) 100 Mg Capsule, 1 CAP PO BID for 5 Days, #14 CAP 0 Refills Prov:COBY NEGRETE CNP 07/25/24 Albuterol Sulfate (Ventolin Hfa/Proventil Hfa/Proair Hfa) 90 Mcg Puff, 2 PUFF IH Q4H for WHEEZING, #1 INHALER 0 Refills Prov:CHUY HILLP 03/09/24 Azithromycin (Zithromax Tri-Stanley) 500 Mg Tablet, 500 MG PO DAILY for 7 Days, #7 TAB Prov:CHUY HILLP 03/09/24 Oseltamivir Phosphate (Tamiflu) 75 Mg Cap, 75 MG PO BID for 5 Days, #10 CAP Prov:CHUY [facility] 03/09/24 Ondansetron (Ondansetron Odt) 4 Mg Tab.rapdis, 4 MG PO TID PRN for NAUSEA, #15 TAB 0 Refills Prov:RAMON DIAS MD 08/20/21 Nitrofurantoin/Nitrofuran Mac (Macrobid) 100 Mg Cap, 1 CAP PO BID for 7 Days, #14 CAP 0 Refills Prov:RAMON DIAS MD 08/20/21 Past Medical History Past Medical History: No Pertinent History Surgical History: Unknown History: Not Applicable : 1 Para: 2 Aborts: 0 RN Note Reviewed/Agreed w/PFSH: Yes Review of System Dictation Constitutional: Negative for fever,chills, and weight loss Eyes: Negative for injury, pain,redness, and discharge ENT: Negative for injury,pain or swelling Cardiovascular: Negative for chest pain, palpitations, and edema Respiratory: Negative for shortness of breath, cough, and wheezing, Abdomen/GI: Negative for nausea, vomiting,, and constipation positive for abdominal pain, diarrhea Back: Negative for injury and pain : Negative for injury, bleeding and discharge MS/Extremity: Negative for injury and deformity Skin: Negative for rash, and discoloration Neuro: Negative for headache, weakness, numbness, tingling, and seizure Psych: Negative for suicide ideation, homicidal ideation, and hallucinations Initial Vital Sign VS Vital Signs Date Time Temp Pulse Resp B/P (MAP) Pulse Ox O2 Delivery O2 Flow Rate FiO2 02/13/25 20:25 98.1 91 20 146/88 100 Room Air 02/13/25 22:11 0 21 Physical Exam Dictation Vital Signs reviewed General Appearance: Alert, oriented x 3, no acute distress, well developed, nourished. Head and Face: non-traumatic. Eyes: PERRL, pink conjunctivas, eyelid no trauma, anterior chamber with arcus senilis. Ears: Pinnas intact and no signs of trauma or erythema ear canals clear and no discharge TM no erythema Nose: No discharge, no bleeding. Oropharynx: Mouth normal, tongue pink. pharynx clear,no erythema, tonsils no exudates, no abscesses noted, mucous membrane moist Neck: Supple, non-tender, no thyromegaly, no masses, no JVD, no bruits Breast:Deferred Chest:No tenderness, no crepitus, no paradoxical movement, no retractions Lungs:Clear, well-ventilated, symmetric, no rales, no wheezing, no rhonchi, no stridor, good breath sounds bilaterally Heart: Regular rate, regular rhythm, no murmur, no gallops Vascular: no peripheral edema, Abdomen: Soft, positive bowel sounds, nondistended, no guarding, nontender, no rebound, no masses no hepatomegaly, no splenomegaly, no Chambers's sign, no hernias. Rectal: Deferred Genital: Deferred Neurological: Normal speech, motor function intact, sensory function intact Musculoskeletal: Neck nontender, full range of motion, back nontender, full range of motion, Extremities: nontender, full range of motion Skin: Color pink, dry, no turgor, no rash, no lacerations, no abrasions, no contusions. Lymphatic: Deferred Results (Laboratory/Radiology) Laboratory/Radiology Laboratory Tests Test 02/13/25 20:30 02/13/25 20:49 Urine Color LIGHT-YELLOW (YELLOW) Urine Appearance CLEAR (CLEAR) Urine pH 6.5 (5.0-8.0) Urine Specific [place] 1.024 (1.001-1.031) Urine Protein NEGATIVE mg/dL (NEGATIVE) Urine Glucose (UA) NEGATIVE mg/dL (NEGATIVE) Urine Ketones NEGATIVE mg/dL (NEGATIVE) Urine Occult Blood +- (TRACE) (NEGATIVE) H Urine Nitrate NEGATIVE (NEGATIVE) Urine Bilirubin NEGATIVE mg/dL (NEGATIVE) Urine Urobilinogen 0.2 mg/dL (0.2-1.0) Urine Leukocyte Esterase 500 Merry/uL (NEGATIVE) H Urine RBC 6-10 /HPF (0-1) H Urine WBC 11-25 /HPF (0-1) H Urine Squamous Epithelial Cells MOD /HPF (0-2) Urine Bacteria RARE /HPF (None Seen) Urine HCG, Qualitative NEGATIVE (NEGATIVE) White Blood Count 8.2 K/uL (4.8-10.8) Red Blood Count 4.45 MIL/uL (4.00-5.50) Hemoglobin 13.2 g/dL (12.0-16.0) Hematocrit 39.2 % (36-48) Mean Corpuscular Volume 88.1 fL (79-99) Mean Corpuscular Hemoglobin 29.7 pg (27.0-33.0) Mean Corpuscular Hemoglobin Concent 33.7 g/dL (32.0-36.0) Red Cell Distribution Width 12.5 % (11.0-15.5) Platelet Count 259 K/uL (130-400) Mean Platelet Volume 11.0 fL (7.5-10.5) H Immature Granulocyte % (Auto) 0.2 % (0-1) Neutrophils (%) (Auto) 74.6 % (40.0-77.0) Lymphocytes (%) (Auto) 18.3 % (21.0-51.0) L Monocytes (%) (Auto) 5.4 % (3.0-13.0) Eosinophils (%) (Auto) 1.0 % (0.0-8.0) Basophils (%) (Auto) 0.5 % (0.0-5.0) Neutrophils # (Auto) 6.1 K/uL (1.8-7.7) Lymphocytes # (Auto) 1.5 K/uL (1.0-4.8) Monocytes # (Auto) 0.4 K/uL (0.1-1.0) Eosinophils # (Auto) 0.08 K/uL (0.00-0.70) Basophils # (Auto) 0.04 K/uL (0.00-0.20) Absolute Immature Granulocyte (auto 0.02 K/uL (0-1) Nucleated Red Blood Cells 0.0 % (0.0-0.19) Sodium Level 137 mmol/L (136-145) Potassium Level 3.3 mmol/L (3.5-5.1) L Chloride Level 102 mmol/L (101-111) Carbon Dioxide Level 29 mmol/L (21-32) Blood Urea Nitrogen 16 mg/dL (7-18) Creatinine 0.9 mg/dL (0.5-1.0) Glomerular Filtration Rate Calc 89 mL/min (>90) Random Glucose 88 mg/dL (70-105) Total Calcium 8.8 mg/dL (8.5-10.1) Human Chorionic Gonadotropin, Quant 34 mIU/mL (0-5) H REASON: pelvic pain ORDERING PHYSICIAN: SANTY KENDALL PROCEDURE: OB <14 - US OB <14 WEEKS EXAMINATION: OB ULTRASOUND LESS THAN 14 WEEKS. CLINICAL HISTORY: Amenorrhea. Pelvic pain. Beta hcG is 34. COMPARISON: None. TECHNIQUE: Grayscale and color ultrasound images were obtained utilizing a transabdominal transducer. FINDINGS: LMP: 01/18/2025, 3 weeks and 5 days. JEREMY: 10/25/2025. The uterus is anteverted, normal in caliber, and measures 7.6 x 4.3 x 5.2 cm in the craniocaudal, AP, and transverse dimensions, respectively. The endometrium measures approximately 1.24 cm. There is no intrauterine gestation sac seen at present. Cervix appears normal. The right ovary is normal in caliber and measures 2.0 x 1.6 x 2.1 cm. The left ovary is normal in caliber and measures 2.8 x 1.7 x 1.9 cm. There is a small free fluid in the cul-de-sac. IMPRESSION: No intrauterine gestation sac at present. Recommend beta hcG correlation and follow-up ultrasound. Labs Reviewed?: Yes ED Course ED Course Orders Procedure Category Date Status Time Urinalysis Profile LAB 02/13/25 Complete 20:29 ,Urine Test LAB 02/13/25 Complete 20:29 Cbc With Differential LAB 02/13/25 Complete 20:33 0.9%Nacl 1000ml (Ns PHA 02/13/25 Complete 1000ml) 21:00 Basic Metabolic Panel LAB 02/13/25 Complete 20:33 Culture Urine EVELYN 02/13/25 In Process 20:45 Hcg,Quantitative LAB 02/13/25 Complete 20:49 Nitrofurantoin PHA 02/13/25 Complete Monohyd/M-Cryst 21:30 Potassium Bicarb/Cit PHA 02/13/25 Complete Ac 25meq (K-Lyte Ta 21:30 Us Ob <14 Weeks US 02/13/25 Resulted 21:33 Current Medications Medications (Trade) Dose Ordered Sig/Nanette Route PRN Reason Start Time Stop Time Status Last Admin Dose Admin Nitrofurantoin Macrocrystals (Macrobid) 100 mg ONCE ONCE PO 02/13/25 21:30 02/13/25 21:31 DC 02/13/25 22:00 Potassium Bicarbonate (K-Lyte Tablet Eff 25 Meq Tablet.eff) 25 meq ONCE ONCE PO 02/13/25 21:30 02/13/25 21:31 DC 02/13/25 22:00 Sodium Chloride 1,000 ml @ 0 mls/hr ONCE ONCE IV 02/13/25 21:00 02/13/25 21:01 DC 02/13/25 21:36 Vital Signs Date Time Temp Pulse Resp B/P (MAP) Pulse Ox O2 Delivery O2 Flow Rate FiO2 02/13/25 23:21 98.8 87 18 132/65 100 Room Air* 0 21 02/13/25 22:11 98.8 88 18 122/66 98 Room Air* 0 21 02/13/25 20:25 98.1 91 20 146/88 100 Room Air Medical Decision Making MDM The patient is a 29-year-old female with a history of irregular periods, asthma who presents to the emergency department with complaints of suprapubic abdominal pain onset two days ago. Patient reports occasional nonbloody diarrhea. Denies any vaginal bleeding or discharge, denies any nausea or vomiting, denies any fevers. Reports pain travels to her lower back. And it is associated with the occasional dizziness. CBC showed no leukocytosis, no anemia, chemistry showed mild hypokalemia, hCG level of 34, urinalysis positive for leukocyte esterase. OB US no intrauterine gestational sac. Patient otherwise with no vaginal bleeding or discharge. Patient abd soft and nontender.Stable vital signs. Patient will be discharge to follow up with obgyn to follow up on hcg levels and us. Differential diagnosis: UTI, gastroenteritis, Need for hospitalization: Patient does not meet criteria for hospitalization. There are no social concerns with this patient. DX & DISP Disposition: Discharge Departure Impression: Primary Impression: UTI (urinary tract infection) Additional Impressions: Positive test, Hypokalemia Condition: Stable Scripts Nitrofurantoin Monohyd/M-Cryst (Macrobid 100 mg Capsule) 100 Mg Capsule 1 CAP PO BID for 5 Days, #10 CAP 0 Refills Prov: SANTY KENDALL LABEL REMOVER 02/13/25 Additional Instructions: Your labs showed you have an urinary tract infection. Your testing was positive but the HCG levels were low at 34. you need to follow up with your OBGYN to repeat your levels and your ultrasound. If you develop severe abdominal pain, vaginal bleeding or if anything changes please return to ER. FOLLOW-UP WITH PRIMARY CARE PROVIDER IN 1 TO 2 DAYS. TAKE MEDICATIONS DIRECTED HERE IN THE EMERGENCY ROOM. OKAY TO CONTINUE HOME MEDICATIONS UNLESS OTHERWISE DISCUSSED DURING YOUR VISIT IN THE EMERGENCY ROOM TODAY. RETURN TO YOUR NEAREST EMERGENCY ROOM IF SYMPTOMS WORSEN OR IF THERE IS NO IMPROVEMENT. CALL 911 IF YOU NEED IMMEDIATE ASSISTANCE. TAKE TYLENOL [id number] NEEDED AND IF NO CONTRAINDICATIONS ARE PRESENT. INCREASE ORAL HYDRATION. A WOUND CULTURE OR URINE CULTURE WAS ORDERED HERE IN THE EMERGENCY ROOM DEPARTMENT PLEASE FOLLOW-UP WITH PRIMARY CARE PROVIDER AND ADVISE THEM TO GET REPEAT PORTS FROM OUR FACILITY. IF YOU HAD ANY ROSA WRAP/SPLINTS THAT WERE APPLIED HERE, PLEASE DO NOT REMOVE THEM UNTIL YOU SEE YOUR PRIMARY CARE OR SPECIALTY. Referrals: CHUY MARIA MD (PCP) Time of Disposition: 22:40 I have reviewed the case, and I agree with, Diagnosis and Plan I performed a substantive portion of the visit. I have reviewed and personally made and approve the management plan that is documented in the notes by myself with RENEE/resident. I acknowledged full responsibility for the patient's management plan. SANTY KENDALL Feb 13, 2025 20:53 KAIN GUERRA DO Feb 14, 2025 03:13
[2025-02-13 20:54] LABS: IMMATURE GRANULOCYTE ABSOLUTE 0.02 K/uL (0-1); NUCLEATED RED BLOOD CELLS 0.0 % (0.0-0.19); PLATELET COUNT (AUTO) 259 K/uL (130-400); RED BLOOD CELL COUNT(AUTO) 4.45 MIL/uL (4.00-5.50); RED CELL DISTRIBUTION WIDTH 12.5 % (11.0-15.5); WHITE BLOOD COUNT (AUTO) 8.2 K/uL (4.8-10.8)
[2025-02-13 21:10] LABS: CREATININE 0.9 mg/dL (0.5-1.0); GLOMERULAR FILTR. RATE CALC 89.0 mL/min (>90); GLUCOSE,RANDOM 88.0 mg/dL (70-105); SODIUM SERUM 137.0 mmol/L (136-145); UREA NITROGEN, BLOOD 16.0 mg/dL (7-18)
[2025-02-13] MEDS: 0.9%NACL 1000ML 1,000 ML IV ONE (21:36)
[2025-02-13] MEDS: NITROFURANTOIN MONOHYD/M-CRYST 100 MG CAPSULE PO ONE (22:00)
--- NOTE | 2025-02-13 22:34 | HMCIMG ---
EXAMINATION: OB ULTRASOUND LESS THAN 14 WEEKS. CLINICAL HISTORY: Amenorrhea. Pelvic pain. Beta hcG is 34. COMPARISON: None. TECHNIQUE: Grayscale and color ultrasound images were obtained utilizing a transabdominal transducer. FINDINGS: LMP: 01/18/2025, 3 weeks and 5 days. JEREMY: 10/25/2025. The uterus is anteverted, normal in caliber, and measures 7.6 x 4.3 x 5.2 cm in the craniocaudal, AP, and transverse dimensions, respectively. The endometrium measures approximately 1.24 cm. There is no intrauterine gestation sac seen at present. Cervix appears normal. The right ovary is normal in caliber and measures 2.0 x 1.6 x 2.1 cm. The left ovary is normal in caliber and measures 2.8 x 1.7 x 1.9 cm. There is a small free fluid in the cul-de-sac. IMPRESSION: No intrauterine gestation sac at present. Recommend beta hcG correlation and follow-up ultrasound. Small free fluid in the cul-de-sac. No adnexal mass. /[place]
[2025-02-13] MEDS ORDERED: NITR100C4 PO (22:40)
[2025-02-13 23:21] VITALS: BP 132/65; PULSE 87; RESP 18; TEMP 98.8; O2SAT 100
== END 2025-02-13 23:23 | disposition home or self-care (01) ==
LOC: EDH 20:22
DX: N39.0 Urinary tract infection, site not specified (principal); E87.6 Hypokalemia; R42 Dizziness and giddiness; R19.7 Diarrhea, unspecified; Z32.01 Encounter for pregnancy test, result positive; J45.909 Unspecified asthma, uncomplicated; Z88.0 Allergy status to penicillin; Z79.899 Other long term (current) drug therapy
CPT/HCPCS: 99284; 96360; 76801; 80048; 84702; 85025; 87086 ×2; 87186; 81001; 81025; 36415; J7030